=== PATIENT | male | born 1985 | race African-American/Black ===

== ENCOUNTER 2018-04-26 18:22 | Emergency (ER) | payer OTHER ==
[~2018-04-26] VITALS: Ht 190.5 cm; Wt 90.7 kg
[~2018-04-26 18:22] MED LIST: ALBU2.5V38 IH
--- NOTE | 2018-04-26 19:38 | NUR ---
BIBSELF C/O RIGHT EAR CYST X 4 DAYS.
[2018-04-26] MEDS ORDERED: LIDOCAINE /MPF 1% VIAL 5 ML VIAL ONE (19:57)
[2018-04-26] MEDS ORDERED: TDAP [DIPH/PERTUSSIS/TET] 0.5 ML VIAL IM ONE ×2 (20:00→20:03)
[2018-04-26 20:26] VITALS: BP 132/80
== END 2018-04-26 20:27 | disposition home or self-care (01) ==
LOC: ER 18:26
DX: H66.41 Suppurative otitis media, unspecified, right ear (principal); Z60.2 Problems related to living alone
CPT/HCPCS: 69000; 90471; 90715; 99283; A4606; A6402; J3490; Z7610

== ENCOUNTER 2018-12-06 11:56 | Emergency (ER) | payer OTHER ==
[~2018-12-06] VITALS: Ht 190.5 cm; Wt 90.7 kg
--- NOTE | 2018-12-06 12:08 | NUR ---
COUGH AND CONGESTION SINCE MONDAY, SOB SINCE YESTERDAY. HX OF ASTHMA. DENIES PAIN WITH COUGH. PT IS AOX4, AMB, VSS, RR EVEN AND UNLABORED. SKIN WARM DRY INTACT. NO ACUTE DISTRESS NOTED. DENIES DIZZINESS, WEAKNESS. FAMILY MEMBER AT BEDSIDE. READY FOR EVAL
[2018-12-06] MEDS ORDERED: ALBUTEROL FS 2.5 MG/3 ML VIAL.NEB ONE (12:41)
[2018-12-06] MEDS ORDERED: IPRATROPIUM NEB FS 0.5 MG/2.5 ML AMPUL.NEB ONE (12:42)
[2018-12-06] MEDS ORDERED: ALBUTEROL FS 2.5 MG/0.5 ML VIAL.NEB ONE (12:43)
[2018-12-06] MEDS ORDERED: predniSONE 20 MG TABLET ONE (12:48)
[2018-12-06] MEDS: ALBUTEROL FS 2.5 MG/3 ML VIAL.NEB NEB ONE (12:50)
[2018-12-06] MEDS: IPRATROPIUM NEB FS 0.5 MG/2.5 ML AMPUL.NEB NEB ONE (12:50)
[2018-12-06] MEDS: predniSONE 20 MG TABLET PO ONE (12:50)
--- NOTE | 2018-12-06 12:50 | NUR ---
RT AT BEDSIDE FOR EVAL.
--- NOTE | 2018-12-06 13:07 | NUR ---
PT ON BREATHING TX. CARLOS WELL
--- NOTE | 2018-12-06 13:47 | NUR ---
Patient discharged to home in stable condition. Written and verbal after care instructions given. Patient verbalizes understanding of instruction.
[2018-12-06 14:40] VITALS: BP 131/82
== END 2018-12-06 13:47 | disposition home or self-care (01) ==
LOC: ER 11:58
DX: J45.909 Unspecified asthma, uncomplicated (principal); Z60.2 Problems related to living alone
CPT/HCPCS: 71045-TC

== ENCOUNTER 2019-07-18 08:31 | Emergency (ER) | payer SELFPAY ==
[~2019-07-18] VITALS: Ht 182.9 cm; Wt 89.4 kg
[2019-07-18 08:37] VITALS: BP 126/78
--- NOTE | 2019-07-18 08:47 | NUR ---
SEEN AND EXAMINED BY .
[2019-07-18] MEDS ORDERED: predniSONE 20 MG TABLET ONE (08:57)
[2019-07-18] MEDS ORDERED: IPRATROPIUM NEB FS 0.5 MG/2.5 ML AMPUL.NEB NEB ONE (09:00)
[2019-07-18] MEDS ORDERED: predniSONE 20 MG TABLET PO ONE (09:00)
[2019-07-18] MEDS ORDERED: ALBUTEROL FS 2.5 MG/3 ML VIAL.NEB NEB ONE (09:00)
--- NOTE | 2019-07-18 09:00 | NUR ---
RT AT BEDSIDE FOR BREATHING TREATMENT.
[2019-07-18] MEDS ORDERED: ALBUTEROL FS 2.5 MG/3 ML VIAL.NEB ONE (09:02)
[2019-07-18] MEDS ORDERED: IPRATROPIUM NEB FS 0.5 MG/2.5 ML AMPUL.NEB ONE (09:02)
--- NOTE | 2019-07-18 11:16 | NUR ---
Patient discharged to home in stable condition. Written and verbal after care instructions given. Patient verbalizes understanding of instruction.
== END 2019-07-18 11:22 | disposition home or self-care (01) ==
LOC: ER 08:33
DX: J45.909 Unspecified asthma, uncomplicated (principal); Z60.2 Problems related to living alone
CPT/HCPCS: 94640; 99283; J7512

== ENCOUNTER → 2024-04-01 | Emergency (ER) | payer SELFPAY ==
[~2024-04-01] VITALS: Ht 190.5 cm; Wt 104.3 kg
[2024-04-01 18:52] VITALS: BP 133/74; TEMP 98.7; O2SAT 100
[2024-04-02 03:44] LABS: HIV-1 p24 ANTIGEN NON REACTIVE (NONREACTIVE); HIV-1/2 ANTIBODY NON REACTIVE (NONREACTIVE)
[2024-04-03 08:09] LABS: RAPID PLASMA REAGIN QUAL. Non Reactive (Non Reactive)
[2024-04-03 23:11] LABS: CHLAMYDIA TRACHOMATIS NAA Negative (Negative); NEISSERIA GONORRHOEAE NAA Negative (Negative)
== END | disposition home or self-care (01) ==
LOC: ER 17:04
DX: A64 Unspecified sexually transmitted disease (principal); J45.909 Unspecified asthma, uncomplicated; Z60.2 Problems related to living alone
CPT/HCPCS: 36415; 86592; 86593; 87491; 87591; 87806